=== PATIENT | female | born 1995 | race Caucasian/White ===

== ENCOUNTER → 2019-05-15 | Outpatient (CLI) | payer SELFPAY ==
--- NOTE | 2019-05-15 16:57 | US_ITS ---
STUDY: SECOND AND THIRD TRIMESTER OBSTETRICAL ULTRASOUND REASON FOR EXAM: Female, 24 years old. Growth LMP: 12/01/2018 TECHNIQUE: Transabdominal TECHNICAL QUALITY: Adequate. PRIOR ULTRASOUND: None. FINDINGS: There is a single intrauterine fetus. The fetus is in a breech presentation. There is demonstrated cardiac activity with a heart rate of 147 bpm. There is a normal amniotic fluid volume. The largest amniotic fluid pocket measures 5.8. The placenta is fundal in location. There are Grade 0 placental changes. The cervix measures 5.1 cm in length. BIOMETRY: BPD: 5.5: 23 weeks, 0 days HC: 21.9: 24 weeks, 0 days AC: 18.0: 23 weeks, 0 days FL: 4.2: 23 weeks, 4 days CI: FL/BPD: FL/HC: FL/AC: HC/AC: age by current US: 23 weeks, 3 days. ABRAHAM by current US: 09/08/2019. Estimated weight: 575 grams, +/- 84 grams, 27 %. age by prior US: weeks, days. ABRAHAM by prior US: . Age by LMP: 23 weeks, 4 days. ABRAHAM by LMP: 09/07/2019. US/OB Limited With Biometrics IMPRESSION: Single live fetus in a breech presentation. survey not performed on this exam. Placenta is grade 0 and is not low-lying. Cervix is closed. age by current US: 23 weeks, 3 days. ABRAHAM by current US: 09/08/2019. Estimated weight: 575 grams, +/- 84 grams, 27 %. Electronically Signed: Rajiv Kan MD at 20:45 EDT , Service support ,
== END | disposition home or self-care (01) ==
LOC: US 16:23
DX: Z34.90 Encounter for supervision of normal pregnancy, unspecified, unspecified trimester (principal)
CPT/HCPCS: 76816